=== PATIENT | male | born 1940 | race Caucasian/White ===

== ENCOUNTER 2018-02-23 23:13 | Observation (INO) | payer MEDICARE, MEDICAID ==
[2018-02-24] MEDS ORDERED: Acetaminophen 325 MG TAB PO PRN ×2 (02:23→10:17)
[2018-02-24] MEDS ORDERED: Ondansetron HCl/PF 4 MG/2 ML Vial IVP PRN ×2 (02:23→10:17)
[2018-02-24] MEDS ORDERED: Ondansetron ODT 4 MG TAB SL PRN (02:23)
[2018-02-24 02:52] VITALS: BMI 46.1
[2018-02-24] MEDS ORDERED: Loperamide HCl 2 MG CAP PO PRN (10:17)
[2018-02-24] MEDS ORDERED: Eucerin (Mineral Oil/Petrolatum,White) 30 gm Jar TOP PRN (10:17)
[2018-02-24] MEDS ORDERED: Sodium Chloride 0.65% Nasal 44 ML BOT EA NARE PRN (10:17)
[2018-02-24] MEDS ORDERED: Chloraseptic Spray 180 ml Bottle PO PRN (10:17)
[2018-02-24] MEDS ORDERED: Artificial Tears 18 DROP/0.9 ML EA EYE PRN (10:17)
[2018-02-24] MEDS ORDERED: Loratadine 10 MG TAB PO PRN (10:17)
[2018-02-24] MEDS ORDERED: Ondansetron ODT 4 MG TAB PO PRN (10:17)
[2018-02-24] MEDS ORDERED: HumaLOG 300 UNITS/3 ML VIAL SC PRN (10:17)
[2018-02-24] MEDS ORDERED: Mag-Al 1200 mg/1200 mg/30 ML UDCUP PO PRN (10:17)
[2018-02-24] MEDS ORDERED: Senokot 8.6 MG TAB PO PRN (10:17)
[2018-02-24] MEDS ORDERED: Dextrose 5% in Water 1,000 ML IV PRN (10:17)
[2018-02-24] MEDS ORDERED: Zolpidem Tartrate 5 MG TAB PO PRN (10:17)
[2018-02-24] MEDS ORDERED: Dextrose 50% Abboject 50 ML SYRINGE SLOW IVP PRN (10:17)
[2018-02-24] MEDS ORDERED: HYDROcodone/Acetaminophen 5/325 mg Tablet PO PRN (10:17)
[2018-02-24] MEDS ORDERED: hydrALAZINE 20 MG/ML VIAL SLOW IVP PRN (10:17)
[2018-02-24] MEDS ORDERED: Diabetic Tussin 200 MG/10 ML UDCUP PO PRN (10:17)
[2018-02-24] MEDS ORDERED: Milk Of Magnesia 30 ML UDCUP PO PRN (10:17)
[2018-02-24] MEDS: HumaLOG 300 UNITS/3 ML VIAL SC PRN ×2 (11:05→17:55)
--- NOTE | 2018-02-24 15:50 | ULT ---
BILATERAL CAROTID DUPLEX ULTRASOUND: Date: 02/24/18 HISTORY: TIA. FINDINGS: Real-time color Doppler evaluation of the right and left carotid systems shows fairly extensive plaqu e formation bilaterally. On the right side, peak systolic velocities of the common carotid were 82 cm/second. Internal carotid velocities were 171 cm/second with diastolic velocities of 46 cm/second. External carotid velocities were 142 cm/second. On the left side, peak systolic velocities of the common carotid were 98 cm/second. Internal carotid velocities were 132 cm/second and external carotid velocities were 160 cm/second. Vertebral flow was antegrade bilaterally. IMPRESSION: Findings suggesting 50-69% narrowing of both internal carotid arteries. On the left, this is probably on the lower end of this range given the peak systolic velocity measurements. If indicated, CT angio graphy may be helpful in further assessment. POS: [facility]
[2018-02-24] MEDS ORDERED: Non-Formulary Item 1 EACH (Insulin Detemir 100 Units/Ml [Levemir] 80 UNIT) SQ SCH (21:00)
[2018-02-24] MEDS: Insulin Glargine 80 UNITS in Pre-Filled Syringe 1 EACH SC SCH (21:00)
[2018-02-24] MEDS ORDERED: Famotidine 20 MG TAB PO SCH (21:00)
[2018-02-24] MEDS ORDERED: Atorvastatin Calcium 10 MG TAB PO SCH (21:00)
[2018-02-24] MEDS: Lisinopril 20 MG TAB PO SCH (21:03)
--- NOTE | 2018-02-24 23:54 | SS ---
PRIMARY CARE PHYSICIAN: Dr. Morgan. DATE OF ADMISSION: 02/24/2018, 39 minutes after midnight. REASON FOR ADMISSION: Transfer from [facility] for rule out stroke. HISTORY OF PRESENT ILLNESS: A 77-year-old male who has history of coronary artery disease, diabetes type 2, hypertension, dyslipidemia, morbid obesity as well as history of prostate cancer who went to [facility] because he experienced numbness in left upper extremity which lasted for 5 minutes. Patient reports that he was moving boxes from his home to storage place. At the storage place, he was feeling that his left upper extremity was completely normal. He did not have any motor weakness. He did not have any associated chest pain, palpitation, shortness of breath. He did not have any symptoms in lower extremity. He was not experiencing any chest pain. He was not having any facial asymmetry or difficulty speaking. This numbness lasted for about 5 minutes. He went to his home and he decided to go to local emergency room. By that time, his symptoms completely improved. At [facility], he had CT brain which was normal. His routine blood test was also unremarkable. When I saw this patient this morning, he was completely fine and normal. He does not want to go for MRI because he is very weak and he cannot feed in MRI machine. I tried to convince him to go for MRI, but he is not willing to go for that. We are trying to do a carotid Doppler echocardiography as a part of a TIA workup and if that workup is negative, then patient prefers to go home later on today. PAST MEDICAL HISTORY: Coronary artery disease, morbid obesity with BMI of 47, COPD/asthma, diabetes type 2, hypertension, dyslipidemia. PAST SURGICAL HISTORY: Right knee replacement, cardiac catheterization with stent placement in 2013. PAST PSYCHIATRIC HISTORY: Reviewed and negative. SOCIAL HISTORY: The patient is and lives at home with his . No history of tobacco, alcohol or illicit drug abuse. FAMILY HISTORY: No strong family history of premature coronary artery disease, stroke or cancer. ALLERGIES: No known drug allergy. EMERGENCY ROOM COURSE: Patient is given aspirin 324 mg IV fluid. CURRENT HOME MEDICATIONS: Unfortunately, this patient does not have any medication with him and he does not know the name of medication and subsequently we called his pharmacy and following medication was verified, Levemir 80 units subQ b.i.d., Tradjenta 5 mg p.o. daily, lisinopril 20 mg p.o. daily, Protonix 40 mg p.o. daily, pravastatin 40 mg p.o. daily, verapamil SR 240 mg p.o. daily. Patient was not taking aspirin or any kind of blood thinner medicine at home. REVIEW OF SYSTEMS: The following complete review of systems was negative, unless otherwise mentioned in the HPI or below: Constitutional: Weight loss or gain, ability to conduct usual activities. Skin: Rash, itching. Eyes: Double vision, pain. ENT/Mouth: Nose bleeding, neck stiffness, pain, tenderness. Cardiovascular: Palpitations, dyspnea on exertion, orthopnea. Respiratory: Shortness of breath, wheezing, cough, hemoptysis, fever or night sweats. Gastrointestinal: Poor appetite, abdominal pain, heartburn, nausea, vomiting, constipation, or diarrhea. Genitourinary: Urgency, frequency, dysuria, nocturia. Musculoskeletal: Pain, swelling. Neurologic/Psychiatric: Anxiety, depression. Allergy/Immunologic: Skin rash, bleeding tendency. Please see my HPI for pertinent positive and negative. All other review of systems reviewed and negative except as mentioned in the HPI. PHYSICAL EXAMINATION: VITAL SIGNS: On arrival, blood pressure 150/81, pulse 106, respiratory rate 18 , temperature 97.7, saturation 94% on room air, weight 286 pounds. GENERAL: The patient is currently alert, awake, no obvious acute distress. HEAD: Normocephalic, atraumatic. EYES: Pupils are round, reactive to light. Extraocular muscle intact. ENT: Oropharynx within normal limits. Moist mucous membranes. No oral lesions. No pharyngeal erythema, no exudate. NECK: Supple, no JVD, no thyromegaly, no carotid bruit. No jugular venous distention. LUNGS: Clear to auscultation without any rhonchi or rales. CARDIAC: S1, S2 regular without any murmur. ABDOMEN: Soft, bowel sounds present, nontender, nondistended. No organomegaly , no mass, no suprapubic tenderness. BACK: Unremarkable. No CVA tenderness. EXTREMITIES: Upper extremity passive movement of all joints are normal. Lower extremity, no edema. Good peripheral pulsation. SKIN: No skin rash. HEMATOLOGIC: No lymphadenopathy. PSYCHIATRIC: Normal affect. NEUROLOGIC: The patient is alert, oriented x3. Cranial nerves II-XII intact. Motor 5/5 in all four limbs. Sensation bilaterally symmetrical. Reflexes symmetrical. No cerebellar signs. Gait normal. SIGNIFICANT LABORATORY DATA: EKG showing normal sinus rhythm within normal limits. CT brain based on my review, no acute intracranial process. CBC: WBC 9.2, hemoglobin 13.9, platelets 255. INR 0.9. BMP: Sodium 142, potassium 4.4 , chloride 106, carbon dioxide 25, anion gap 15, BUN 25, creatinine 1.57, glucose 261, calcium 9.7. LFT: AST 15, ALT 22, alkaline phosphatase is 105, albumin 4.1, troponin I less than 0.010. BNP 37.0. ASSESSMENT AND PLAN: 1. Transient left upper extremity paraesthesia, resolved, suspected for transient ischemic attack, ruled out cerebrovascular accident. Currently, patient is normal. We tried to do MRI, but this patient does not want to go for MRI and that is why we are only obtaining carotid Doppler and echocardiography. As a part of stroke workup upon discharge, the patient is advised to continue aspirin 325 mg p.o. daily along with his medication. Neurologically, he is completely normal. Given his risk factor, he might have TIA secondary atherosclerosis. He is already on statin therapy and antihypertensive medications. Healthy lifestyle measures discussed with the patient. Dietary education given, weight loss education given. Patient prefers to go home today because he is completely normal. I advised him to stay here in hospital overnight for observation, but he prefers to go home later on today. 2. Diabetes type 2. Continue Levemir 80 units subQ b.i.d., Tradjenta 5 mg p.o. daily, insulin as per sliding scale protocol while in hospital. 3. Hypertension. Continue lisinopril 20 mg p.o. daily, verapamil SR 240 mg p.o. daily. 4. History of skipped beats suspected for premature ventricular complexes. The patient is already on verapamil SR 240 mg p.o. daily. 5. Morbid obesity. Dietary education given, weight loss education given. Healthy lifestyle was discussed with the patient. 6. Gastroesophageal reflux disease. Continue Protonix 40 mg p.o. daily. 7. Deep venous thrombosis prophylaxis not needed because we are expecting discharge in 24 hours. 8. Gastrointestinal prophylaxis, Protonix 40 mg p.o. daily. CODE STATUS: The patient is FULL CODE. Patient does not have any surrogate decision maker. Disposition plan based on above-mentioned investigation likely later on today per patient's request. DATE OF ADMISSION: 02/24/2018 DATE OF DISCHARGE: 02/24/2018 DISCHARGE DISPOSITION: Home. PRIMARY DISCHARGE DIAGNOSES: Left upper extremity paraesthesia, likely transient ischemic attack, resolved. SECONDARY DISCHARGE DIAGNOSES: Diabetes type 2, hypertension, dyslipidemia, morbid obesity, coronary artery disease, premature ventricular complexes. PRIMARY PROCEDURES/OPERATIONS: None. RADIOLOGICAL INVESTIGATIONS: CT brain negative. Echocardiography and carotid Doppler pending. SIGNIFICANT LABORATORY DATA: Hemoglobin 13.9, INR of 0.9, creatinine 1.57. LFT normal. Cardiac enzymes negative. BNP 37. DISCHARGE MEDICATIONS: Patient will continue on home medications including Levemir insulin 80 units subQ b.i.d., Tradjenta 5 mg p.o. daily, lisinopril 20 mg p.o. daily, Protonix 40 mg p.o. daily, pravastatin 40 mg p.o. daily, verapamil SR 240 mg p.o. daily, aspirin 325 mg p.o. daily. CONTRAINDICATIONS: None. CODE STATUS: FULL CODE. INPATIENT CORPORATE STRATEGY ANALYST: None. ALLERGIES: No known drug allergy. DISCHARGE PLAN: Post hospital, the patient is instructed to follow up with primary care physician in 1 week. HOSPITAL COURSE: A 77-year-old male who was sent from [facility] for left upper extremity paraesthesia, which lasted for about [address] brain was normal. EKG was normal. Routine blood test was normal. Telemetry remained unremarkable while in hospital. Patient wanted to go home today if investigation is unremarkable. Patient is neurologically intact. He is medically stable for discharge. NITHYA
[2018-02-25 07:47] LABS: #Eosinphils 0.3 thou/uL (0.0-0.7); #Lymphocytes 1.5 thou/uL (1.20-3.40); #Monocytes 0.7 thou/uL (0.11-0.59); #Neutrophils 4.9 thou/uL (1.40-6.50); %Basophils 0.1 % (0.0-1.0); %Eosinophils 3.7 % (0.0-10.0); %Lymphocytes 19.9 % (21.0-51.0); %Monocytes 9.9 % (0.0-10.0); %Neutrophils 66.3 % (42.0-75.0); Hemoglobin 13.6 g/dL (14.0-18.0); Mean Corpuscular HGB CONC 33.8 g/dL (32.0-36.0); Mean Corpuscular Hemoglobin 30.4 pg (27.0-31.0); Mean Platelet Volume 6.5 fL (7.4-10.4); Platelet Count 215 thou/uL (130-400); RBC Distribution Width 12.1 % (11.5-14.5); Red Blood Cell (RBC) Count 4.47 mill/uL (4.70-6.10); White Blood Cell (WBC) Count 7.3 thou/uL (4.8-10.8)
[2018-02-25 07:59] LABS: Hemoglobin A1c 9.4 % (4.0-6.0)
[2018-02-25 08:26] LABS: Anion Gap 12 mmol/L (10-20); BUN (Urea Nitrogen) 18 mg/dL (8.4-25.7); Calc. Creatinine Clearance 96 mL/min (70-130); Calcium 9.4 mg/dL (7.8-10.44); Carbon Dioxide 26 mmol/L (23-31); Cardiac Risk 4.5 (Less than 4.5); Chloride 104 mmol/L (98-107); Cholesterol 174 mg/dl (< 200 Desired); Estimated GFR-MDRD 59; Glucose 257 mg/dL (83-110); HDL Cholesterol 39 mg/dL (>60 Neg Risk); LDL Cholesterol, Calculated 106 mg/dL; Potassium 4.1 mmol/L (3.5-5.1); Sodium 138 mmol/L (136-145); Triglycerides 143 mg/dL (Less than 150)
[2018-02-25] MEDS: Lisinopril 20 MG TAB PO SCH (08:53)
[2018-02-25] MEDS ORDERED: Non-Formulary Item 1 EACH (Linagliptin [Tradjenta] 5 MG) PO SCH (09:00)
[2018-02-25] MEDS ORDERED: Pravastatin Sodium 40 MG TAB PO SCH (09:00)
[2018-02-25] MEDS ORDERED: Alogliptin 25 MG TAB PO SCH (09:00)
[2018-02-25] MEDS ORDERED: VERAPAMIL HCL 240 MG PO SCH (09:00)
[2018-02-25] MEDS ORDERED: Aspirin 325 mg Enteric Coated Tablet PO SCH (09:00)
[2018-02-25] MEDS: Insulin Glargine 80 UNITS in Pre-Filled Syringe 1 EACH SC SCH (10:12)
--- NOTE | 2018-02-25 10:41 | CT ---
CT ANGIO NECK: INDICATIONS: Follow-up carotid Doppler study, performed 02/24/2018, which revealed significant stenosis in both in ternal carotid arteries. There is a history of left arm numbness. TECHNIQUE: Multiple axial tomograms obtained through the neck with IV enhancement, following angio protocol, wit h multiplanar reconstruction and 3D post processing. FINDINGS: Evaluation of the aortic arch reveals soft plaque at the origin of the left common carotid artery, wh ich does appear to produce significant stenosis at this origin, approaching 50% diameter. This is be st appreciated on coronal imaging. The left common carotid, above its origin, reveals another area of soft plaque in the mid left common carotid artery, which is also producing significant stenosis of approximately 50% diameter. At the bifurcation, there is significant calcified plaque, along with soft plaque, which is producing hemodynamically significant stenosis at the origin of the left internal carotid artery. The degree of stenosis appears significant, estimated in the 70% range, in the axial images. Abnormal soft plaque and some calcified plaque extends into the left internal carotid artery, above i ts origin, producing hemodynamically significant stenosis of at least 50%, at a focus approximately 2 cm above the origin of the left ICA. The left-sided ICA, more distally, as it enters the base of the skull, appears unremarkable. The right common carotid artery is unremarkable. There is calcified plaque and some soft plaque at the right bulb and the proximal ICA. This does pro duce hemodynamically significant stenosis in the proximal right internal carotid artery at its origin and above the bulb. The degree of stenosis does appear significant, estimated in the 70% to 80% ran ge, according to NASCET criteria. The right ICA, above this region, is unremarkable. The vertebral arteries are faintly seen but do appear patent. There appears to be a dominant right v ertebral. No soft tissue abnormality identified. IMPRESSION: 1. There is hemodynamically significant stenosis at the origin of the left common carotid at the aor tic arch. In addition, there is a segment of soft plaque, producing hemodynamically significant sten osis in the mid left common carotid artery, over a length of approximately 2 cm. 2. There is significant calcified plaque and soft plaque at the left carotid bulb and proximal left internal carotid artery, producing significant stenosis in the proximal left internal carotid artery, as described above. 3. There is significant calcified and soft plaque in the right bulb and proximal right internal rolon tid artery, producing critical stenosis in the proximal right internal carotid artery, as noted above . POS: [facility]
--- NOTE | 2018-02-25 11:43 | PDOC.PN ---
- Subjective Encounter Start Date: 02/25/18 Encounter Start Time: 07:50 -: old records requested/rev Patient seen and examined. No new complaints. No overnight events - Objective Resuscitation Status: Resuscitation Status FULL:Full Resuscitation MAR Reviewed: Yes Vital Signs & Weight: Vital Signs (12 hours) Temp Pulse Resp BP BP BP Pulse Ox 02/25/18 08:53 194/81 H 02/25/18 07:54 97.7 F 87 18 134/88 98 02/25/18 03:50 98.2 F 89 18 177/70 H 94 L 02/25/18 00:05 97.6 F 95 20 142/67 H 97 Weight Weight 286 lb I&O: 02/24/18 02/25/18 02/26/18 06:59 06:59 06:59 Intake Total 240 1450 Balance 240 1450 Result Diagrams: 02/25/18 07:28 02/25/18 07:28 Additional Labs: Accuchecks 02/25/18 02/25/18 02/24/18 10:31 05:56 21:32 POC Glucose 309 H 249 H 342 H 02/24/18 02/24/18 17:23 10:59 POC Glucose 299 H 413 H Radiology Reviewed by me: Yes (carotid us, CTA) EKG Reviewed by me: Yes (nsr) Phys Exam - Physical Examination Constitutional: NAD HEENT: PERRLA, moist MMs, sclera anicteric Neck: no JVD, supple Respiratory: no wheezing, no rales, no rhonchi Cardiovascular: RRR, no significant murmur, no rub Gastrointestinal: soft, non-tender, no distention, positive bowel sounds Musculoskeletal: no edema, pulses present Neurological: non-focal, normal sensation, moves all 4 limbs Psychiatric: normal affect, A&O x 3 Skin: no rash, normal turgor Dx/Plan (1) TIA (transient ischemic attack) Code(s): G45.9 - TRANSIENT CEREBRAL ISCHEMIC ATTACK, UNSPECIFIED Status: Acute (2) CAD (coronary artery disease) Code(s): I25.10 - ATHSCL HEART DISEASE OF [place] CORONARY ARTERY W/O ANG PCTRS Status: Chronic (3) Carotid stenosis Code(s): I65.29 - OCCLUSION AND STENOSIS OF UNSPECIFIED CAROTID ARTERY Status : Chronic (4) Diabetes type 2, controlled Code(s): E11.9 - TYPE 2 DIABETES MELLITUS WITHOUT COMPLICATIONS Status: Chronic (5) Dyslipidemia Code(s): E78.5 - HYPERLIPIDEMIA, UNSPECIFIED Status: Chronic (6) Hypertension Code(s): I10 - ESSENTIAL (PRIMARY) HYPERTENSION Status: Chronic (7) Morbid obesity with BMI of 45.0-49.9, adult Code(s): E66.01 - MORBID (SEVERE) OBESITY DUE TO EXCESS CALORIES; Z68.42 - BODY MASS INDEX (BMI) 45.0-49.9, ADULT Status: Chronic - Plan cont current plan of care * pt does not want MRI * CTA neck done and now will consult CT surgeon * medication reviewed as below * symptomatic treatment * he may need CEA ? mostly outpt * discharge based on CT surgeon recommendation Review of Systems - Review of Systems Eyes: negative: Pain, Vision Change, Conjunctivae Inflammation, Eyelid Inflammation, Redness, Other ENT: negative: Ear Pain, Ear Discharge, Nose Pain, Nose Discharge, Nose Congestion, Mouth Pain, Mouth Swelling, Throat Pain, Throat Swelling, Other Respiratory: negative: Cough, Dry, Shortness of Breath, Hemoptysis, SOB with Excertion, Pleuritic Pain, Sputum, Wheezing Cardiovascular: negative: chest pain, palpitations, orthopnea, paroxysmal nocturnal dyspnea, edema, light headedness, other Gastrointestinal: negative: Nausea, Vomiting, Abdominal Pain, Diarrhea, Constipation, Melena, Hematochezia, Other Genitourinary: negative: Dysuria, Frequency, Incontinence, Hematuria, Retention , Other Musculoskeletal: negative: Neck Pain, Shoulder Pain, Arm Pain, Back Pain, Hand Pain, Leg Pain, Foot Pain, Other Skin: negative: Rash, Lesions, Tian, Bruising, Other - Medications/Allergies Allergies/Adverse Reactions: Allergies Allergy/AdvReac Type Severity Reaction Status Date / Time No Known Drug Allergies Allergy Verified 02/24/18 02:55 Medications: Current Medications Acetaminophen (Tylenol) 650 mg PO Q4H PRN PRN Reason: Headache/Fever/ Pain(1-3) Hydrocodone Bitart/Acetaminophen ([place] 5/325) 1 tab PO Q4H PRN PRN Reason: Moderate Pain (4-6) Al Hydroxide/Mg Hydroxide (Maalox) 30 ml PO Q6H PRN PRN Reason: Heartburn or Indigestion Alogliptin Benzoate (Alogliptin) 25 mg PO DAILY [facility] Last Admin: 02/25/18 08:52 Dose: 25 mg Artificial Tears (Tears Naturale) 0 drop EA EYE PRN PRN PRN Reason: Dry Eyes Aspirin (Ecotrin) 325 mg PO DAILY [facility] Last Admin: 02/25/18 08:52 Dose: 325 mg Atorvastatin Calcium (Lipitor) 10 mg PO HS [facility] Last Admin: 02/24/18 21:00 Dose: 10 mg [facility]il[facility] ([facility]g) [facility] Dextrose/Water (Dextrose 50%) 25 gm SLOW IVP PRN PRN PRN Reason: Hypoglycemia Glucagon (Glucagon) 1 mg IM PRN PRN PRN Reason: Hypoglycemia Guaifenesin (Robitussin Sf) 200 mg PO Q4H PRN PRN Reason: Cough Hydralazine HCl (Apresoline) 10 mg SLOW IVP Q4H PRN PRN Reason: Systolic BP > 180 Dextrose/Water (D5w) 1,000 mls @ 0 mls/hr IV .Q0M PRN; As Directed PRN Reason: Hypoglycemia Insulin Glargine 80 units/ (Miscellaneous Medication) 0.8 mls @ 0 mls/hr SC BID [facility] Last Admin: 02/25/18 10:12 Dose: 0.8 mls Insulin Human Lispro (Humalog) 0 units SC .MODERATE SLIDING SC PRN PRN Reason: Moderate Correctional Scale Last Admin: 02/24/18 17:55 Dose: 6 unit Insulin Human Lispro (Humalog) 0 units SC .BEDTIME SLIDING SC PRN PRN Reason: Bedtime Correctional Scale Lisinopril (Zestril) 20 mg PO DAILY [facility] Last Admin: 02/25/18 08:53 Dose: 20 mg Loperamide HCl (Imodium) 2 mg PO PRN PRN PRN Reason: Diarrhea/Loose Stools Loratadine (Claritin) 10 mg PO DAILYPRN PRN PRN Reason: Sinus Symptoms Magnesium Hydroxide (Milk Of Magnesium) 30 ml PO DAILYPRN PRN PRN Reason: Constipation Mineral Oil/White Petrolatum (Eucerin Cream) 0 gm TOP BIDPRN PRN PRN Reason: Dry Skin Ondansetron HCl (Zofran Odt) 4 mg PO Q6H PRN PRN Reason: Nausea/Vomiting Ondansetron HCl (Zofran) 4 mg IVP Q6H PRN PRN Reason: Nausea/Vomiting Pantoprazole Sodium (Protonix) 40 mg PO DAILY [facility] Last Admin: 02/25/18 08:53 Dose: 40 mg Phenol (Chloraseptic [place] 180 Ml Bot) 0 ml PO PRN PRN PRN Reason: Sore Throat Senna (Senokot) 2 tab PO HSPRN PRN PRN Reason: Constipation Sodium Chloride (Dare Nasal Sterling 0.65%) 0 ml EA NARE QIDPRN PRN PRN Reason: Nasal Congestion Sodium Chloride (Flush - Normal Saline) 10 ml IVF Q12HR [facility] Last Admin: 02/25/18 08:54 Dose: 10 ml Sodium Chloride (Flush - Normal Saline) 10 ml IVF PRN PRN PRN Reason: Saline Flush Verapamil HCl (Calan Sr) 240 mg PO DAILY [facility] Last Admin: 02/25/18 08:53 Dose: 240 mg Zolpidem Tartrate (Ambien) 5 mg PO HSPRN PRN PRN Reason: Insomnia
[2018-02-25] MEDS ORDERED: Iopamidol 370 76% 100 ML VIAL ONE (13:24)
--- NOTE | 2018-02-25 15:46 | DIS ---
PRIMARY CARE PHYSICIAN: Flavio Morgan M.D. DATE OF ADMISSION: 02/24/2018 DATE OF DISCHARGE: 02/25/2018 DISCHARGE DISPOSITION: Home. PRIMARY DISCHARGE DIAGNOSES: 1. Transient ischemic attack. 2. Carotid stenosis. SECONDARY DISCHARGE DIAGNOSES: Morbid obesity with body mass index of 46, hypertension, dyslipidemia , diabetes type 2, coronary artery disease. PRIMARY PROCEDURE/OPERATION: None. RADIOLOGICAL INVESTIGATION: Echocardiography was normal. A carotid Doppler study showed bilateral c arotid stenoses. CT angiography showed hemodynamically significant stenosis on the left side. SIGNIFICANT LABORATORY DATA: Hemoglobin 13.6, creatinine 1.20. LDL 106. Hemoglobin A1c 9.4. DISCHARGE MEDICATIONS: Aspirin 81 mg p.o. daily, Plavix 75 mg p.o. daily, Coreg 6.25 mg p.o. b.i.d., insulin Levemir 80 units subcu b.i.d., Tradjenta 5 mg p.o. daily, lisinopril 20 mg p.o. daily, Bee nix 40 mg p.o. daily, pravastatin 40 mg p.o. daily, verapamil SR 240 mg p.o. daily. CONTRAINDICATIONS: None. CODE STATUS: FULL CODE. INPATIENT CONSULTANTS: Dr. Victorino Hall was consulted for carotid stenosis. TEST RESULTS PENDING ON DISCHARGE: None. ALLERGIES: No known drug allergy. DISCHARGE PLAN: Post hospital, the patient will follow up with primary care physician and Dr. Gerson Hall as instructed. HOSPITAL COURSE: A 77-year-old male, who was admitted by me. Please see my short summary dictated y for further detail. The patient had a 5 minute numbness in left upper extremity and it was improved to normal. He initially evaluated at [facility] where he had CT brain, which w as normal. Subsequently to rule out stroke. He was sent to our hospital. This patient refused to g o for MRI because of his size and claustrophobia. We did echocardiography, which was normal. Caroti d Doppler showed carotid stenosis and that is why we did CT angiography, which showed left-sided sign ificant stenosis. We consulted Cardiovascular surgeon. Dr. Victorino Hall recommended to continue as pirin and Plavix with statin therapy and he will follow up with the patient as an outpatient basis fo r further intervention. The patient is seen and examined at bedside today. Please see my progress note from today for furthe r detail. His blood pressure was high and that is why we added Coreg on his regimen. All new medica tion prescription sent to his pharmacy. The patient is medically stable for discharge today.
[2018-02-25 16:16] VITALS: BP 137/65; TEMP 97.3
[2018-02-25] MEDS ORDERED: Carvedilol 6.25 MG TAB PO SCH ×2 (17:00)
== END 2018-02-25 16:40 | disposition home or self-care (01) ==
LOC: ERS 23:13 → 2SE 02-24 00:39
PROVIDERS: ADMIT Family Medicine; ATTEND Family Medicine
DX: G45.9 Transient cerebral ischemic attack, unspecified (principal); I10 Essential (primary) hypertension; E78.5 Hyperlipidemia, unspecified; E11.9 Type 2 diabetes mellitus without complications; I25.10 Atherosclerotic heart disease of native coronary artery without angina pectoris; J44.9 Chronic obstructive pulmonary disease, unspecified; E66.01 Morbid (severe) obesity due to excess calories; Z68.42 Body mass index [BMI] 45.0-49.9, adult; Z79.4 Long term (current) use of insulin; Z79.899 Other long term (current) drug therapy; Z95.5 Presence of coronary angioplasty implant and graft
CPT/HCPCS: 70498; 80048; 80061; 82962 ×2; 83036; 85025; 93005; 93306; 93880; 97139 ×2; 99285; G0378; 36415; 36416; J0360

== ENCOUNTER 2018-07-20 13:09 | Outpatient (CLI) | payer MEDICARE, MEDICAID | END 2018-07-20 13:10 | disposition home or self-care (01) | PROVIDERS: ATTEND Orthopaedic Surgery | DX: M70.61 Trochanteric bursitis, right hip (principal) ==

== ENCOUNTER 2020-10-01 16:54 | Observation (INO) | payer MEDICARE, MEDICAID ==
[2020-10-01] MEDS ORDERED: Nitroglycerin 2% Ointment 1 INCH/1 GM Packet ONE (18:48)
[2020-10-01 18:53] LABS: #Eosinphils 0.1 thou/uL (0.0-0.7); #Monocytes 0.5 thou/uL (0.11-0.59); #Neutrophils 5.8 thou/uL (1.40-6.50); %Basophils 0.1 % (0.0-1.0); %Eosinophils 1.3 % (0.0-10.0); %Lymphocytes 12.9 % (21.0-51.0); %Monocytes 7.1 % (0.0-10.0); %Neutrophils 78.5 % (42.0-75.0); Hemoglobin 12.6 g/dL (14.0-18.0); Mean Corpuscular HGB CONC 32.7 g/dL (32.0-36.0); Mean Corpuscular Hemoglobin 29.6 pg (27.0-31.0); Mean Corpuscular Volume 90.4 fL (78.0-98.0); Mean Platelet Volume 6.9 fL (7.4-10.4); Platelet Count 255 thou/uL (130-400); RBC Distribution Width 12.5 % (11.5-14.5); Red Blood Cell (RBC) Count 4.25 mill/uL (4.70-6.10); White Blood Cell (WBC) Count 7.4 thou/uL (4.8-10.8)
[2020-10-01 19:15] LABS: ALT (SGPT) 16 U/L (8-55); AST (SGOT) 14 U/L (5-34); Albumin 3.5 g/dL (3.4-4.8); Alkaline Phosphatase 85 U/L (40-110); Anion Gap 14 mmol/L (10-20); BUN (Urea Nitrogen) 17 mg/dL (8.4-25.7); Bilirubin, Total 0.6 mg/dL (0.2-1.2); CK (CPK) 41 U/L (30-200); Calc. Creatinine Clearance 0 mL/min (70-130); Calcium 8.2 mg/dL (7.8-10.44); Carbon Dioxide 25 mmol/L (23-31); Chloride 109 mmol/L (98-107); Globulin 3.5 g/dL (2.4-3.5); Lipase 17 U/L (8-78); Potassium 3.6 mmol/L (3.5-5.1); Sodium 144 mmol/L (136-145)
--- NOTE | 2020-10-01 19:15 | CT ---
CT head noncontrast HISTORY: Altered mental status. TIA. FINDINGS: There is no evidence of acute intracranial hemorrhage or infarct. The ventricles appear normal in size, shape and position. There is no mass effect or shift of midline structures. Visualized paranasal sinuses remain well aerated. IMPRESSION : No abnormalities are demonstrated.
[2020-10-01 19:26] LABS: Glucose 35 mg/dL (83-110)
[2020-10-01] MEDS ORDERED: Dextrose 50% Abboject 50 ML SYRINGE ONE (19:29)
--- NOTE | 2020-10-01 19:46 | RAD ---
PORTABLE CHEST: Date: 10/01/2020 HISTORY: Chest pain. COMPARISON: 06/18/2020. FINDINGS: Evidence of bilateral effusions and mild bibasilar atelectasis. Upper lung zones are clear. Heart and mediastinum unremarkable. Vascular markings are normal. IMPRESSION: Opacification of the lung bases consistent with bilateral effusions and bibasilar atelectasis or infi ltrates. POS: [facility]
[2020-10-01 23:22] LABS: Troponin I 0.026 ng/mL (< 0.028)
[2020-10-01] MEDS ORDERED: Acetaminophen 650 MG Suppository PR PRN (23:44)
[2020-10-01] MEDS ORDERED: Acetaminophen 325 MG TAB PO PRN (23:44)
[2020-10-02] MEDS ORDERED: Nitroglycerin 0.4 MG TAB (25 Tab Bottle) SL PRN
--- NOTE | 2020-10-02 00:25 | PDOC.HHP ---
Hospitalist HPI History of Present Illness: ADMISSION DATE: 10/01/2020 TIME OF ASSESSMENT: 2199 PRIMARY CARE PHYSICIAN: Dr. Morgan CHIEF COMPLAINT: Chest pain HPI: This is a 80-year-old gentleman who presents emergency department after having an episode of lightheadedness and orientation while driving. The patient states he lives with his son who had pointed out he was swerving on the road. The patient states he felt that if he was going to pass out which prompted him to pull into a gas station. As he was pulling in he reports feeling left-sided chest pain that was nonradiating and aching in nature. He is unsure how long the discomfort lasted. Per ED notes the patient had been noted to have a facial droop as well as slurred speech but was back to baseline on arrival. His glucose was checked and was 78. Once laboratory studies were obtained however his glucose was noted to be critically low at 35. He received an amp of D50 and his glucose improved to 121. According to patient he states he felt fairly well throughout the day and denies having any complaints. He states he checked his glucose this morning and it was 118 therefore took his insulin but did not have anything to eat at all through out the entire day. States he was never told by his primary care physician that he should not take his insulin if he did not plan to eat. Reports having a low glucose in the 70s yesterday morning and called his primary care physician who advised him to eat breakfast after taking insulin. Patient has had MIs in the past last 1 in June 2020. He reports having shortness of breath on exertion and had an echo done as well as a stress test by Dr. Pablo in the last 6 months. States he was recently started on Coreg as well as Plavix in the last week. He was told this was to help his heart pump better. Patient states since starting those new medications he has not felt great but unable to pinpoint his symptoms exactly. The main complaint however is shortness of breath with exertion. The patient states he recently had worsening with his breathing some of what he attributes to nasal congestion. He bought a used CPAP or BiPAP machine at night which he states was not the right machine recommended for him and caused him nausea develop nasal congestion with dryness and subsequent epistaxis that has now cleared up. ROS: He denies any recent fevers, chills or sweats. No headaches or dizziness. No nausea or vomiting. No recent abdominal pain. No diarrhea. Denies having any urinary symptoms. All other review systems are negative. ED COURSE: EKG done in the ER showed sinus bradycardia with a heart rate of 58. Labs showed a white cell count of 7.4, hemoglobin 12.6, hematocrit 30.4, platelets of 55, neutrophils 70.5%. BUN 17, creatinine 1.30, GFR 53, glucose initially was 35 and more recently was 121. LFTs normal. CK 41, troponin negative x2, BNP 203.2. Chest x-ray showed opacification of the lung bases consistent with bilateral effusions and bibasilar atelectasis or infiltrates. CT head was done due to concerns for TIA given the slurred speech and confusion. No abnormalities were demonstrated. Due to hypoglycemia he was given an amp of D50. He had 1 inch nitroglycerin applied for chest pain and received 500 mils of normal saline. Allergies/Adverse Reactions: Allergy/AdvReac Type Severity Reaction Status Date / Time No Known Drug Allergies Allergy Verified 11/05/19 15:21 Home Medications: Medication Instructions Recorded Confirmed Type Insulin Detemir 100 UNITS/ML 80 unit SQ BID 02/24/18 06/18/20 History [Levemir] Linagliptin [Tradjenta] 5 mg PO DAILY 02/24/18 06/18/20 History Lisinopril 20 mg PO DAILY 02/24/18 06/18/20 History Pantoprazole [Protonix] 40 mg PO DAILY 02/24/18 06/18/20 History Pravastatin Sodium 40 mg PO DAILY 02/24/18 06/18/20 History Verapamil HCl [Verapamil SR] 240 mg PO DAILY 02/24/18 06/18/20 History Aspirin [Ecotrin Low Strength] 81 mg PO DAILY #30 tab 02/25/18 06/18/20 Rx Icosapent Ethyl [Vascepa] 2 cap PO BID 06/18/20 06/18/20 History metFORMIN HCl [Metformin HCl] 500 mg PO BID 06/18/20 06/18/20 History Carvedilol [Coreg] 12.5 mg PO BID-WM 30 Days #60 tab 06/19/20 Rx Clopidogrel Bisulfate [Plavix] 75 mg PO DAILY tab 06/19/20 Rx Past History: PAST MEDICAL HISTORY: 1. History of VT x3, last NSTEMI was June 2020. 2. CVA x3 3. CAD 4. Cardiac arrhythmia 5. Emphysema 6. Type 2 diabetes mellitus, on insulin 7. Hypertension 8. Obesity 9. Sleep apnea 10. Prostate cancer 11. CKD PAST SURGICAL HISTORY: 1. Carotid stents bilaterally 2. Coronary artery stent placement 3. Right knee surgery SOCIAL HISTORY: The patient lives with his family. Denies any tobacco use, heavy alcohol consumption or drug use. He states he usually drinks 1 beer every 3 to 4 weeks. FAMILY HISTORY: Noncontributory Hospitalist Exam Vitals: VS: Temp 97.7, HR 71, BP 140/55, RR 16, O2 sat 94%. General Appearance: NAD, awake alert Eye: PERRL, anicteric sclera ENT: normocephalic atraumatic Neck: supple, no lymphadenopathy Heart: RRR, normal peripheral pulses Respiratory: CTAB, no wheezes, no rales, no ronchi, normal chest expansion, no tachypnea Respiratory - other findings: short of breath with long sentences Gastrointestinal: soft (obese), non-tender, normal bowel sounds, no guarding, no rigidity Extremities: no edema Skin: tenting Neurological: cranial nerve grossly intact, normal sensation to touch, no weakness Musculoskeletal: normal tone, normal strength, no muscle wasting Psychiatric: normal affect, normal behavior, A&O x 3 Hospitalist Results Result Diagrams: 10/01/20 18:33 10/01/20 18:33 Lab results: Laboratory Last Values WBC 7.4 thou/uL (4.8-10.8) 10/01/20 18: RBC 4.25 mill/uL (4.70-6.10) L 10/01/20 18: Hgb 12.6 g/dL (14.0-18.0) L 10/01/20 18: Hct 38.4 % (42.0-52.0) L 10/01/20 18: MCV 90.4 fL (78.0-98.0) 10/01/20 18: MCH 29.6 pg (27.0-31.0) 10/01/20 18: MCHC 32.7 g/dL (32.0-36.0) 10/01/20 18: RDW 12.5 % (11.5-14.5) 10/01/20 18:33 Plt Count 255 thou/uL (130-400) 10/01/20 18:33 MPV 6.9 fL (7.4-10.4) L 10/01/20 18:33 Neutrophils % 78.5 % (42.0-75.0) H 10/01/20 18:33 Lymphocytes % 12.9 % (21.0-51.0) L 10/01/20 18: Monocytes % 7.1 % (0.0-10.0) 10/01/20 18:33 Eosinophils % 1.3 % (0.0-10.0) 10/01/20 18: Basophils % 0.1 % (0.0-1.0) 10/01/20 18: Neutrophils # 5.8 thou/uL (1.40-6.50) 10/01/20 18: Lymphocytes # 1.0 thou/uL (1.20-3.40) L 10/01/20 18: Monocytes # 0.5 thou/uL (0.11-0.59) 10/01/20 18: Eosinophils # 0.1 thou/uL (0.0-0.7) 10/01/20 18: Basophils # 0.0 thou/uL (0.0-0.2) 10/01/20 18:33 Sodium 144 mmol/L (136-145) 10/01/20 18:33 Potassium 3.6 mmol/L (3.5-5.1) 10/01/20 18:33 Chloride 109 mmol/L (98-107) H 10/01/20 18:33 Carbon Dioxide 25 mmol/L (23-31) 10/01/20 18:33 Anion Gap 14 mmol/L (10-20) 10/01/20 18:33 BUN 17 mg/dL (8.4-25.7) 10/01/20 18:33 Creatinine 1.30 mg/dL (0.7-1.3) 10/01/20 18:33 Estimated GFR (MDRD) 53 10/01/20 18:33 Glucose 35 mg/dL (83-110) L* 10/01/20 18:33 POC Glucose 121 mg/dL (70-100) H 10/01/20 21:48 Calcium 8.2 mg/dL (7.8-10.44) 10/01/20 18:33 Total Bilirubin 0.6 mg/dL (0.2-1.2) 10/01/20 18:33 AST 14 U/L (5-34) 10/01/20 18:33 ALT 16 U/L (8-55) 10/01/20 18:33 Alkaline Phosphatase 85 U/L (40-110) 10/01/20 18:33 Creatine Kinase 41 U/L (30-200) 10/01/20 18:33 Troponin I 0.026 ng/mL (< 0.028) 10/01/20 22:50 B-Natriuretic Peptide 203.2 pg/mL (0-100) H 10/01/20 18:33 Serum Total Protein 7.0 g/dL (5.8-8.1) 10/01/20 18:33 Albumin 3.5 g/dL (3.4-4.8) 10/01/20 18:33 Globulin 3.5 g/dL (2.4-3.5) 10/01/20 18:33 Albumin/Globulin Ratio 1.0 g/dL (1.2-2.2) L 10/01/20 18:33 Lipase 17 U/L (8-78) 10/01/20 18:33 CT scan - head Status: report reviewed by ak Chest x-ray Status: report reviewed by ak Hospitalist H&P A/P (1) Chest pain Code(s): R07.9 - CHEST PAIN, UNSPECIFIED Status: Acute Assessment and Plan: Per patient recent stress test and Echo Obtain records from outside facility (Dr. aPblo) Cardiac monitoring Continue Aspirin and resume statin Continue to trend troponins Check D-Dimer and Mg+ Cardiology consult NPO at midnight (2) Hypoglycemia Code(s): E16.2 - HYPOGLYCEMIA, UNSPECIFIED Status: Acute Assessment and Plan: Patient took insulin and did not eat through the day Monitor glucose, Accu-cheks hourly x [address] [facility] if no further hypoglycemic episodes Home School Teacher consult, patient in need of education re: diet and insulin (3) Diabetes mellitus type 2 in obese Code(s): E11.69 - TYPE 2 DIABETES MELLITUS WITH OTHER SPECIFIED COMPLICATION; E66.9 - OBESITY, UNSPECIFIED Status: Chronic Assessment and Plan: Hold ISS for now (4) Shortness of breath on exertion Code(s): R06.02 - SHORTNESS OF BREATH Status: Acute Assessment and Plan: D-dimer ordered If elevated, will obtain CTA chest Echo report to be obtained, likely has underlying HF Monitor O2 sats (5) Hypertension Code(s): I10 - ESSENTIAL (PRIMARY) HYPERTENSION Status: Chronic Assessment and Plan: Monitor BP Resume home meds as appropriate (6) CKD (chronic kidney disease) Code(s): N18.9 - CHRONIC KIDNEY DISEASE, UNSPECIFIED Status: Chronic Assessment and Plan: Monitor renal function Avoid nephrotoxic meds (7) History of TIA (transient ischemic attack) Code(s): Z86.73 - PRSNL HX OF TIA (TIA), AND CEREB INFRC W/O RESID DEFICITS Status: Chronic (8) History of VT (myocardial infarction) Code(s): I25.2 - OLD MYOCARDIAL INFARCTION Status: Chronic (9) CAD (coronary artery disease) Code(s): I25.10 - ATHSCL HEART DISEASE OF [place] CORONARY ARTERY W/O ANG PCTRS Status: Chronic (10) Dyslipidemia Code(s): E78.5 - HYPERLIPIDEMIA, UNSPECIFIED Status: Chronic Assessment and Plan: Check lipid panel with AM labs Plan: GI prophylaxis with Famotidine DVT Prophylaxis with Heparin CODE STATUS FULL Case discussed with Dr. Cross who agrees with plan as above.
[2020-10-02] MEDS ORDERED: Aspirin 325 MG TAB PO SCH (00:35)
[2020-10-02] MEDS ORDERED: Dextrose 50% Abboject 50 ML SYRINGE SLOW IVP PRN (00:45)
[2020-10-02] MEDS ORDERED: Dextrose 5% in Water 1,000 ML IV PRN (00:45)
[2020-10-02] MEDS ORDERED: Aspirin 325 MG TAB ONE (01:53)
[2020-10-02] MEDS ORDERED: Nitroglycerin 2% Ointment 1 INCH/1 GM Packet ONE (03:27)
[2020-10-02 03:53] LABS: SARS-CoV-2 NAA Rapid Test Not Detected (NotDetected)
[2020-10-02] MEDS ORDERED: Nitroglycerin 2% Ointment 1 INCH/1 GM Packet TOP SCH (04:00)
[2020-10-02 07:15] LABS: #Eosinphils 0.1 thou/uL (0.0-0.7); #Monocytes 0.8 thou/uL (0.11-0.59); %Basophils 0.3 % (0.0-1.0); %Eosinophils 2.1 % (0.0-10.0); %Lymphocytes 14.4 % (21.0-51.0); %Neutrophils 72.3 % (42.0-75.0); Hemoglobin 11.3 g/dL (14.0-18.0); Mean Corpuscular HGB CONC 33.2 g/dL (32.0-36.0); Mean Corpuscular Hemoglobin 30.5 pg (27.0-31.0); Mean Corpuscular Volume 91.9 fL (78.0-98.0); Mean Platelet Volume 7.3 fL (7.4-10.4); Platelet Count 206 thou/uL (130-400); RBC Distribution Width 12.3 % (11.5-14.5); Red Blood Cell (RBC) Count 3.69 mill/uL (4.70-6.10); White Blood Cell (WBC) Count 6.9 thou/uL (4.8-10.8)
[2020-10-02 07:21] LABS: Anion Gap 13 mmol/L (10-20); BUN (Urea Nitrogen) 18 mg/dL (8.4-25.7); Calc. Creatinine Clearance 0 mL/min (70-130); Carbon Dioxide 24 mmol/L (23-31); Chloride 111 mmol/L (98-107); Cholesterol 119 mg/dl (< 200 Desired); Glucose 80 mg/dL (83-110); HDL Cholesterol 30 mg/dL (>60 Neg Risk); LDL Cholesterol, Calculated 72 mg/dL; Potassium 3.6 mmol/L (3.5-5.1); Sodium 144 mmol/L (136-145); Triglycerides 86 mg/dL (Less than 150)
[2020-10-02] MEDS ORDERED: Famotidine 20 MG TAB PO SCH (09:00)
[2020-10-02] MEDS ORDERED: Heparin 5,000 UNITS/ML VIAL SC SCH (09:00)
--- NOTE | 2020-10-02 15:06 | PDOC.DS.DS ---
Provider Date of Admission: 10/01/20 20:45 Date of Discharge: 10/02/20 Admitting Provider: Dayday Cross MD Primary Care Physician: Flavio Morgan MD Course Hospital Course: This 80-year-old patient was admitted by the internal medicine team yesterday evening. The patient decided to leave AGAINST MEDICAL ADVICE today prior to me seeing him. I never saw and I never evaluated him. He reported that he wanted to follow-up with his sales and business development manager on outpatient basis. Resuscitation Status: 10/01/20 23:44 Resuscitation Status Routine Co-Sign Provider: Resuscitation Status: FULL: Full Resuscitation Lab Results: 10/02/20 06:52 10/02/20 06:52 Abnormal Lab Results - Last 48 hrs 10/01/20 18:33: B-Natriuretic Peptide 203.2 H 10/01/20 18:33: Chloride 109 H, Albumin/Globulin Ratio 1.0 L 10/01/20 18:33: RBC 4.25 L, Hgb 12.6 L, Hct 38.4 L, MPV 6.9 L, Neutrophils % 78.5 H, Lymphocytes % 12.9 L, Lymphocytes # 1.0 L 10/02/20 01:16: D-Dimer 0.64 H 10/02/20 06:52: Chloride 111 H, Creatinine 1.39 H 10/02/20 06:52: RBC 3.69 L, Hgb 11.3 L, Hct 33.9 L, MPV 7.3 L, Lymphocytes % 14.4 L, Monocytes % 11.0 H, Lymphocytes # 1.0 L, Monocytes # 0.8 H Physical Exam: The patient was seen and examined on the day of discharge. Plan Home Medications: Medication Instructions Recorded Confirmed Type Insulin Detemir 100 UNITS/ML 80 unit SQ BID 02/24/18 06/18/20 History [Levemir] Linagliptin [Tradjenta] 5 mg PO DAILY 02/24/18 06/18/20 History Lisinopril 20 mg PO DAILY 02/24/18 06/18/20 History Pantoprazole [Protonix] 40 mg PO DAILY 02/24/18 06/18/20 History Pravastatin Sodium 40 mg PO DAILY 02/24/18 06/18/20 History Verapamil HCl [Verapamil SR] 240 mg PO DAILY 02/24/18 06/18/20 History Aspirin [Ecotrin Low Strength] 81 mg PO DAILY #30 tab 02/25/18 06/18/20 Rx Icosapent Ethyl [Vascepa] 2 cap PO BID 06/18/20 06/18/20 History metFORMIN HCl [Metformin HCl] 500 mg PO BID 06/18/20 06/18/20 History Carvedilol [Coreg] 12.5 mg PO BID-WM 30 Days #60 tab 06/19/20 Rx Clopidogrel Bisulfate [Plavix] 75 mg PO DAILY tab 06/19/20 Rx Allergies: No Known Drug Allergies Allergy (Verified 11/05/19 15:21) Activity:: Activity as Tolerated Referrals: Flavio Morgan MD [Primary Care Provider] - Disposition: HOME Quality CORE MEASURES:: N/A
--- NOTE | 2020-10-02 15:07 | PDOC.BPN ---
- Brief Progress Note Encounter Date: 10/02/20 Encounter Time: 15:07 Please note that this patient left AGAINST MEDICAL ADVICE prior to me evaluating him. I never saw and I never evaluated him.
== END 2020-10-02 10:33 | disposition left against medical advice (07) ==
LOC: ERS 16:54 → ERHOLD 20:45
PROVIDERS: ADMIT Student in an Organized Health Care Education/Training Program; ATTEND Hospitalist
DX: R07.9 Chest pain, unspecified (principal); R42 Dizziness and giddiness; R06.02 Shortness of breath; Z53.21 Procedure and treatment not carried out due to patient leaving prior to being seen by health care provider; I12.9 Hypertensive chronic kidney disease with stage 1 through stage 4 chronic kidney disease, or unspecified chronic kidney disease; E11.22 Type 2 diabetes mellitus with diabetic chronic kidney disease; E11.649 Type 2 diabetes mellitus with hypoglycemia without coma; N18.9 Chronic kidney disease, unspecified; I25.2 Old myocardial infarction; I25.10 Atherosclerotic heart disease of native coronary artery without angina pectoris; E66.9 Obesity, unspecified; E78.5 Hyperlipidemia, unspecified; G47.30 Sleep apnea, unspecified; C61 Malignant neoplasm of prostate; Z79.4 Long term (current) use of insulin; Z79.82 Long term (current) use of aspirin; Z79.899 Other long term (current) drug therapy; Z79.01 Long term (current) use of anticoagulants; Z86.73 Personal history of transient ischemic attack (TIA), and cerebral infarction without residual deficits; Z95.5 Presence of coronary angioplasty implant and graft; Z20.822 Contact with and (suspected) exposure to COVID-19
CPT/HCPCS: 70450; 71045; 80048; 80053; 80061; 82550; 82962 ×2; 83690; 83735; 83880; 84484 ×3; 85025 ×2; 85379; 93005; 96374; 99285; U0002; 36415; 36416; G0378

== ENCOUNTER 2021-09-10 10:45 | Outpatient (CLI) | payer MEDICARE, MEDICAID | END 2021-09-10 10:46 | disposition home or self-care (01) | LOC: BICULT 10:45 | PROVIDERS: ATTEND Internal Medicine Nephrology | DX: N18.30 Chronic kidney disease, stage 3 unspecified (principal); N28.1 Cyst of kidney, acquired; N32.89 Other specified disorders of bladder | CPT/HCPCS: 76770 ==

== ENCOUNTER 2022-12-18 09:00 | Inpatient (IN) | payer OTHER ==
[2022-12-18] MEDS ORDERED: Nitroglycerin 50 MG/250 ML BOT 250 ML ONE (09:13)
[2022-12-18 09:38] LABS: #Eosinphils 0.3 thou/uL (0.0-0.7); #Lymphocytes 1.6 thou/uL (1.20-3.40); #Monocytes 0.9 thou/uL (0.11-0.59); #Neutrophils 8.1 thou/uL (1.40-6.50); %Basophils 0.1 % (0.0-1.0); %Eosinophils 2.6 % (0.0-10.0); %Neutrophils 74.3 % (42.0-75.0); Mean Corpuscular HGB CONC 32.9 g/dL (32.0-36.0); Mean Corpuscular Hemoglobin 30.1 pg (27.0-31.0); Mean Corpuscular Volume 91.5 fl (78.0-98.0); Mean Platelet Volume 7.5 fL (7.4-10.4); Platelet Count 284 10x3/uL (130-400); RBC Distribution Width 12.5 % (11.5-14.5); Red Blood Cell (RBC) Count 4.63 mill/uL (4.70-6.10); White Blood Cell (WBC) Count 10.9 10x3/uL (4.8-10.8)
[2022-12-18 10:00] LABS: ALT (SGPT) 9 U/L (8-55); AST (SGOT) 15 U/L (5-34); Alkaline Phosphatase 111 U/L (40-110); Anion Gap 15 mmol/L (10-20); BUN (Urea Nitrogen) 26 mg/dL (8.4-25.7); Bilirubin, Total 0.4 mg/dL (0.2-1.2); Calc. Creatinine Clearance 0 mL/min (70-130); Calcium 8.8 mg/dL (7.8-10.44); Carbon Dioxide 25 mmol/L (23-31); Chloride 110 mmol/L (98-107); Estimated GFR 33; Globulin 4.2 g/dL (2.4-3.5); Glucose 75 mg/dL (83-110); Potassium 3.8 mmol/L (3.5-5.1); Protein, Total 8.2 g/dL (5.8-8.1); Sodium 146 mmol/L (136-145)
[2022-12-18 10:01] LABS: CRP (Inflammatory) 1.81 mg/dL (= or < 0.5)
[2022-12-18 11:19] LABS: CKMB 1.4 ng/mL (0-6.6)
[2022-12-18] MEDS ORDERED: Ondansetron PF 4 MG/2 ML Vial IVP PRN (11:24)
[2022-12-18] MEDS ORDERED: Acetaminophen 325 MG TAB PO PRN (11:24)
[2022-12-18] MEDS ORDERED: HYDROcodone/Acetaminophen 5/325 mg Tablet PO PRN (11:24)
[2022-12-18] MEDS ORDERED: Calcium Carbonate 500 MG ChewTAB PO PRN (11:24)
[2022-12-18] MEDS ORDERED: hydrALAZINE 20 MG/ML VIAL SLOW IVP PRN (11:29)
[2022-12-18] MEDS ORDERED: Furosemide 100 MG/10 ML VIAL SLOW IVP SCH (11:30)
[2022-12-18] MEDS ORDERED: ALPRAZolam 0.25 MG TAB PO PRN (11:31)
[2022-12-18] MEDS ORDERED: NIFEdipine XL 60 MG TAB PO SCH (11:45)
[2022-12-18 12:33] LABS: Troponin I 0.084 ng/mL (< 0.028)
[2022-12-18] MEDS ORDERED: Dextrose 50% Abboject 50 ML SYRINGE IVP PRN (14:15)
[2022-12-18] MEDS ORDERED: HumaLOG 300 UNITS/3 ML VIAL SC PRN (14:15)
[2022-12-18] MEDS ORDERED: Dextrose 5% in Water 1,000 ML IV PRN (14:15)
[2022-12-18] MEDS: niCARdipine 25 MG in Sodium Chloride 0.9% 250 ML 250 ML IVPB SCH ×3 (15:22→22:30)
[2022-12-18 15:23] LABS: Troponin I 0.124 ng/mL (< 0.028)
[2022-12-18] MEDS: Carvedilol 25 MG TAB PO SCH (18:05)
[2022-12-18] MEDS: Insulin Regular 300 UNITS/3 ML VIAL SC PRN ×2 (18:42→21:20)
[2022-12-19] MEDS ORDERED: Melatonin 3 MG TAB PO PRN (03:11)
[2022-12-19 04:03] LABS: #Eosinphils 0.2 thou/uL (0.0-0.7); #Lymphocytes 1.2 thou/uL (1.20-3.40); #Monocytes 0.9 thou/uL (0.11-0.59); #Neutrophils 4.5 thou/uL (1.40-6.50); %Basophils 0.1 % (0.0-1.0); %Eosinophils 2.6 % (0.0-10.0); %Lymphocytes 18.2 % (21.0-51.0); %Monocytes 12.8 % (0.0-10.0); %Neutrophils 66.4 % (42.0-75.0); Hemoglobin 10.4 g/dL (14.0-18.0); Mean Corpuscular HGB CONC 30.2 g/dL (32.0-36.0); Mean Corpuscular Volume 92.9 fl (78.0-98.0); Mean Platelet Volume 7.4 fL (7.4-10.4); Platelet Count 215 10x3/uL (130-400); RBC Distribution Width 12.3 % (11.5-14.5); Red Blood Cell (RBC) Count 3.71 mill/uL (4.70-6.10); White Blood Cell (WBC) Count 6.7 10x3/uL (4.8-10.8)
[2022-12-19 04:19] LABS: Anion Gap 13 mmol/L (10-20); BUN (Urea Nitrogen) 31 mg/dL (8.4-25.7); Calc. Creatinine Clearance 51 mL/min (70-130); Carbon Dioxide 25 mmol/L (23-31); Chloride 111 mmol/L (98-107); Estimated GFR 31; Glucose 75 mg/dL (83-110); Magnesium 2.2 mg/dL (1.6-2.6); Potassium 3.8 mmol/L (3.5-5.1); Sodium 145 mmol/L (136-145)
[2022-12-19 05:49] VITALS: BMI 46.3
[2022-12-19] MEDS: NIFEdipine XL 60 MG TAB PO SCH (08:45)
[2022-12-19] MEDS: Carvedilol 25 MG TAB PO SCH ×2 (08:46→15:17)
[2022-12-19] MEDS: Heparin 5,000 UNITS/ML VIAL SC SCH ×3 (08:46→20:15)
[2022-12-19] MEDS ORDERED: Furosemide 40 MG/4 ML VIAL SLOW IVP SCH ×2 (09:00→09:30)
[2022-12-19] MEDS: Furosemide 40 MG/4 ML VIAL SLOW IVP SCH (15:17)
[2022-12-19] MEDS: Insulin Regular 300 UNITS/3 ML VIAL SC PRN (20:16)
[2022-12-20 04:17] LABS: #Eosinphils 0.3 thou/uL (0.0-0.7); #Lymphocytes 1.2 thou/uL (1.20-3.40); #Monocytes 0.8 thou/uL (0.11-0.59); #Neutrophils 4.3 thou/uL (1.40-6.50); %Basophils 0.3 % (0.0-1.0); %Eosinophils 4.3 % (0.0-10.0); %Lymphocytes 17.7 % (21.0-51.0); %Monocytes 12.8 % (0.0-10.0); %Neutrophils 64.9 % (42.0-75.0); Hemoglobin 11.9 g/dL (14.0-18.0); Mean Corpuscular HGB CONC 32.1 g/dL (32.0-36.0); Mean Corpuscular Hemoglobin 29.6 pg (27.0-31.0); Mean Corpuscular Volume 92.1 fl (78.0-98.0); Mean Platelet Volume 7.6 fL (7.4-10.4); Platelet Count 205 10x3/uL (130-400); RBC Distribution Width 12.3 % (11.5-14.5); Red Blood Cell (RBC) Count 4.02 mill/uL (4.70-6.10); White Blood Cell (WBC) Count 6.5 10x3/uL (4.8-10.8)
[2022-12-20 04:38] LABS: Anion Gap 11 mmol/L (10-20); BUN (Urea Nitrogen) 31 mg/dL (8.4-25.7); Calc. Creatinine Clearance 53 mL/min (70-130); Calcium 8.5 mg/dL (7.8-10.44); Carbon Dioxide 29 mmol/L (23-31); Chloride 107 mmol/L (98-107); Estimated GFR 33; Glucose 90 mg/dL (83-110); Potassium 3.8 mmol/L (3.5-5.1); Sodium 143 mmol/L (136-145)
[2022-12-20] MEDS: Furosemide 40 MG/4 ML VIAL SLOW IVP SCH ×2 (05:14→14:39)
[2022-12-20] MEDS: Heparin 5,000 UNITS/ML VIAL SC SCH ×2 (08:53→14:39)
[2022-12-20] MEDS: NIFEdipine XL 60 MG TAB PO SCH (08:54)
[2022-12-20] MEDS: Carvedilol 25 MG TAB PO SCH (08:54)
[2022-12-20] MEDS ORDERED: Empagliflozin 10 MG TAB PO SCH (09:00)
[2022-12-20 12:46] VITALS: BP 134/62; TEMP 98.2
== END 2022-12-20 15:32 | disposition home or self-care (01) | DRG 291 ==
LOC: ERS 09:00 → CCU 12:23 → 2NO 12-19 10:19
PROVIDERS: ADMIT Internal Medicine; ATTEND Internal Medicine
PROC: 5A09357 Assistance with Respiratory Ventilation, Less than 24 Consecutive Hours, Continuous Positive Airway Pressure (ICD-10-PCS; 2022-12-18)
PROC: 04HY32Z Insertion of Monitoring Device into Lower Artery, Percutaneous Approach (ICD-10-PCS; principal; 2022-12-19)
DX: I13.0 Hypertensive heart and chronic kidney disease with heart failure and stage 1 through stage 4 chronic kidney disease, or unspecified chronic kidney disease (principal); I50.33 Acute on chronic diastolic (congestive) heart failure; J96.01 Acute respiratory failure with hypoxia; Z68.41 Body mass index [BMI] 40.0-44.9, adult; N18.4 Chronic kidney disease, stage 4 (severe); I16.1 Hypertensive emergency; I25.10 Atherosclerotic heart disease of native coronary artery without angina pectoris; E11.22 Type 2 diabetes mellitus with diabetic chronic kidney disease; G47.33 Obstructive sleep apnea (adult) (pediatric); E66.01 Morbid (severe) obesity due to excess calories; Z96.651 Presence of right artificial knee joint; Z86.73 Personal history of transient ischemic attack (TIA), and cerebral infarction without residual deficits; Z95.5 Presence of coronary angioplasty implant and graft; Z95.828 Presence of other vascular implants and grafts; Z84.1 Family history of disorders of kidney and ureter; Z79.899 Other long term (current) drug therapy; Z79.82 Long term (current) use of aspirin; Z79.02 Long term (current) use of antithrombotics/antiplatelets; Z99.89 Dependence on other enabling machines and devices
CPT/HCPCS: 36415; 36416; 71045; 80048; 80053; 82550; 82553; 83605; 83735; 83880; 84443; 84484; 85025; 85379; 86140; 93005; 93306; 93798; 94660; 94760; 96365; 96366; J1644; J1815; J1940; J7050

== ENCOUNTER 2023-02-02 12:33 | Emergency (ER) | payer OTHER, MEDICAID ==
[2023-02-02] MEDS ORDERED: Ketorolac Tromethamine 30 MG/ML VIAL ONE (13:43)
== END 2023-02-02 15:09 | disposition home or self-care (01) ==
LOC: ERS 12:33
DX: R07.81 Pleurodynia (principal); I25.10 Atherosclerotic heart disease of native coronary artery without angina pectoris; I11.0 Hypertensive heart disease with heart failure; I50.9 Heart failure, unspecified; J44.9 Chronic obstructive pulmonary disease, unspecified; E11.9 Type 2 diabetes mellitus without complications; Z79.82 Long term (current) use of aspirin; Z79.899 Other long term (current) drug therapy
CPT/HCPCS: 71045; 96372; J1885